=== PATIENT | female | born 1950 | race Caucasian/White ===

== ENCOUNTER 2024-01-10 07:01 | Day surgery (SDC) | payer MEDICARE, BC ==
[~2024-01-10 07:01] MED LIST: Acetaminophen/Codeine 300-30 MG Tab PO PRN; Ondansetron 4 MG/2 ML SDV IVPUSH PRN
[2024-01-10] MEDS ORDERED: Midazolam 1 MG/ML 2 ML SDV IV ONE (07:02)
[2024-01-10] MEDS ORDERED: Sodium Chloride 0.9% 10 ML Syringe IV ONE (07:02)
[2024-01-10] MEDS ORDERED: Dexamethasone 4 MG/ML SDV IV ONE (07:02)
[2024-01-10] MEDS: Proparacaine 0.5% Ophth Soln 15 ML Bottle EYELF ONE ×2 (07:34→08:08)
[2024-01-10] MEDS: Moxifloxacin 0.5% Ophth Soln 3 ML Bottle EYELF ONE (07:37)
[2024-01-10] MEDS: Povidone-Iodine 5% Sterile Ophth Soln 30 ML Bottle EYELF ONE (07:38)
[2024-01-10] MEDS: Tropicamide 1% Ophth Soln 15 ML Bottle EYELF ONE (07:38)
[2024-01-10] MEDS: Phenylephrine 10% Ophth Soln 5 ML Bot EYELF ONE (07:39)
[2024-01-10] MEDS: Timolol Maleate 0.5% Ophth Soln 5 ML Bottle EYELF ONE (07:40)
[2024-01-10] MEDS: Sodium Chloride 0.9% 10 ML Syringe FLUSH PRN (07:42)
[2024-01-10] MEDS: Cataract Ophth Solution EYELF ONE (07:42)
[2024-01-10] MEDS: Balanced Salt Solution Ophth Irrig 15 ML Bottle EYELF ONE (08:08)
[2024-01-10] MEDS: Lidocaine 1% 30 ML SDV ONE (08:15)
[2024-01-10] MEDS: Balanced Salt Solution Ophth Irrig 500 ML Bottle IOCULAR ONE (08:15)
[2024-01-10] MEDS: Chondroitin Sulfate/Hyaluronate Sodium Ophth Inj 0.75 ML Syringe EYELF ONE (08:16)
[2024-01-10] MEDS: Vancomycin 500 MG SDV EYELF ONE (08:16)
[2024-01-10] MEDS: Diclofenac Sodium 0.1% Ophth Soln 5 ML Bottle EYELF ONE (08:22)
[2024-01-10] MEDS: Apraclonidine 0.5% Ophth Soln 5 ML Bot EYELF ONE (08:22)
[2024-01-10] MEDS: Dexamethasone/Neomycin/Polymyxin B Ophth Oint 3.5 GM Tube EYELF ONE ×2 (08:23)
[2024-01-10] MEDS: Acetaminophen 325 MG Tab PO PRN (09:18)
== END 2024-01-10 09:20 | disposition home or self-care (01) ==
LOC: DL.SDS 07:01
PROVIDERS: ATTEND Ophthalmology
DX: H25.812 Combined forms of age-related cataract, left eye (principal); I10 Essential (primary) hypertension; E28.39 Other primary ovarian failure; E78.5 Hyperlipidemia, unspecified; R73.03 Prediabetes; Z87.891 Personal history of nicotine dependence; Z79.899 Other long term (current) drug therapy; Z88.9 Allergy status to unspecified drugs, medicaments and biological substances; Z12.31 Encounter for screening mammogram for malignant neoplasm of breast
CPT/HCPCS: 00142; 99100; A9270-GY; J1100; J2250; J3370; J3490; V2632

== ENCOUNTER 2024-01-24 06:57 | Day surgery (SDC) | payer MEDICARE ==
[2024-01-24] MEDS ORDERED: Acetaminophen/Codeine 300-30 MG Tab PO PRN (07:00)
[2024-01-24] MEDS ORDERED: Sodium Chloride 0.9% 10 ML Syringe FLUSH PRN (07:00)
[2024-01-24] MEDS ORDERED: Ondansetron 4 MG/2 ML SDV IVPUSH PRN (07:00)
[2024-01-24] MEDS ORDERED: Acetaminophen 325 MG Tab PO PRN (07:00)
[2024-01-24] MEDS: Proparacaine 0.5% Ophth Soln 15 ML Bottle EYERT ONE ×2 (07:08→08:14)
[2024-01-24] MEDS: Moxifloxacin 0.5% Ophth Soln 3 ML Bottle EYERT ONE (07:08)
[2024-01-24] MEDS: Povidone-Iodine 5% Sterile Ophth Soln 30 ML Bottle EYERT ONE ×2 (07:09→08:14)
[2024-01-24] MEDS: Tropicamide 1% Ophth Soln 15 ML Bottle EYERT ONE (07:11)
[2024-01-24] MEDS: Timolol Maleate 0.5% Ophth Soln 5 ML Bottle EYERT ONE (07:12)
[2024-01-24] MEDS: Phenylephrine 10% Ophth Soln 5 ML Bot EYERT ONE (07:12)
[2024-01-24] MEDS: Cataract Ophth Solution EYERT ONE (07:13)
[2024-01-24] MEDS: Apraclonidine 0.5% Ophth Soln 5 ML Bot EYERT ONE (08:14)
[2024-01-24] MEDS: Diclofenac Sodium 0.1% Ophth Soln 5 ML Bottle EYERT ONE (08:15)
[2024-01-24] MEDS: Vancomycin 500 MG SDV EYERT ONE (08:15)
[2024-01-24] MEDS: Lidocaine 1% 30 ML SDV INJECT ONE (08:15)
[2024-01-24] MEDS: Dexamethasone/Neomycin/Polymyxin B Ophth Oint 3.5 GM Tube EYERT ONE (08:15)
== END 2024-01-24 09:10 | disposition home or self-care (01) ==
LOC: DL.SDS 06:57
PROVIDERS: ATTEND Ophthalmology
DX: H25.811 Combined forms of age-related cataract, right eye (principal); I10 Essential (primary) hypertension; E78.5 Hyperlipidemia, unspecified; E28.39 Other primary ovarian failure; R73.03 Prediabetes; Z87.891 Personal history of nicotine dependence; Z79.899 Other long term (current) drug therapy
CPT/HCPCS: A9270-GY; J3370; J3490; V2632